=== PATIENT | female | born 1975 | race Caucasian/White ===

== ENCOUNTER 2018-06-25 12:46 | Outpatient (CLI) | payer OTHER ==
--- NOTE | 2018-06-26 07:50 | ULT ---
RIGHT BREAST ULTRASOUND LEFT BREAST ULTRASOUND: Date: 06/25/18 HISTORY: Palpable abnormality in the left breast and abnormal mammograms. FINDINGS: Correlation made with mammograms from same date. Sonographic evaluation of the retroareolar aspect of the right breast demonstrates multiple cysts, la rgest measuring about 1.2 cm. Sonographic evaluation of the region of palpable concern in the retroareolar aspect of the left breas t demonstrates multiple cysts, the largest measuring 2.4 cm at the 6 o'clock position, 1.0 cm from th e nipple. Sonographic evaluation of the upper outer aspect of the left breast also demonstrates a sma ll cyst at the 2 o'clock position, measuring about 7.0 mm. Adjacent to this is a hypoechoic, nonshado wing, well circumscribed nodule at the 1 o'clock position, with echogenic hilum and flow consistent w ith lymph node. These findings also correspond to the mammographic findings. IMPRESSION: BI-RADS Category 2 - Benign findings. Return to annual mammographic screening. POS: OFF
== END 2018-06-25 12:47 | disposition home or self-care (01) ==
LOC: BICMAMMO 12:46
PROVIDERS: ATTEND Family Medicine
DX: N63.20 Unspecified lump in the left breast, unspecified quadrant (principal)
CPT/HCPCS: 77066; G0279

== ENCOUNTER 2019-06-29 13:44 | Outpatient (CLI) | payer OTHER ==
--- NOTE | 2019-06-29 14:14 | MMO ---
Bilateral MAMMO Bilat Screen [facility]. CLINICAL HISTORY: Patient is 44 years old and is seen for screening. The patient has no family history of breast cancer. The patient has no personal history of cancer. VIEWS: The views performed were: bilateral craniocaudal with tomosynthesis and bilateral mediolateral oblique with tomosynthesis. FILMS COMPARED: The present examination has been compared to a prior imaging study performed at [facility] on 06/25/2018. This study has been interpreted with the assistance of computer-aided detection. MAMMOGRAM FINDINGS: There are scattered fibroglandular densities. There are several nodules seen in the left breast. These are decreased in size. There are no suspicious masses, suspicious calcifications, or new areas of architectural distortion. IMPRESSION: THERE IS NO MAMMOGRAPHIC EVIDENCE OF MALIGNANCY. A ROUTINE FOLLOW-UP MAMMOGRAM IN 1 YEAR IS RECOMMENDED. THE RESULTS OF THIS EXAM WERE SENT TO THE PATIENT. ACR BI-RADS Category 2 - Benign finding MAMMOGRAPHY NOTE: 1. A negative mammogram report should not delay a biopsy if a dominant of clinically suspicious mass is present. 2. Approximately 10% to 15% of breast cancers are not detected by mammography. 3. Adenosis and dense breasts may obscure an underlying neoplasm. Reported by: POLI BERRY MD Electonically Signed: [id number]
== END 2019-06-29 13:45 | disposition home or self-care (01) ==
LOC: BICMAMMO 13:44
PROVIDERS: ATTEND Family Medicine
DX: Z12.31 Encounter for screening mammogram for malignant neoplasm of breast (principal)
CPT/HCPCS: 77063; 77067